=== PATIENT | female | born 1965 | race Two or more races ===

== ENCOUNTER 2025-09-02 14:21 | Outpatient (AMB) | payer MEDICAID, SELFPAY ==
[2025-09-02 14:59] VITALS: BP 128/83; PULSE 63; RESP 18; TEMP 36.4; O2SAT 98; BMI 28.5
--- NOTE | 2025-09-02 15:00 | PD.GSCLVISIT ---
Vital Signs - [facility] 09/02/25 14:59 09/02/25 15:06 Height 1.57 m Height Method Measured Weight 70.76 kg Weight Measurement Method Standing Scale BMI 28.5 BP 128/83 128/83 Blood Pressure Source Automatic Cuff Blood Pressure Location Left Upper Arm Position Sitting Respiration 18 18 Pulse 63 63 Pulse Source Monitor Temp 97.5 F 97.5 F Temp Source Temporal Artery Scan Pulse Oximetry (%) 98 98 Oxygen Delivery Method Room Air Med/Allergies Allergies & Medications Allergies No Known Allergies Allergy (Verified 09/02/25 15:05) Medication Reconciliation hydrocortisone acetate 25 mg rectal suppository (Anusol-HC) 25 mg NC QHS #24 ea 09/02/25 [Rx] MA Intake Visit Data Collection New Patient or Established: New Patient (never been to [facility]) Seen by Clinical Staff ONLY (RN/MA): No Reason for Visit:: REFERRAL RECTAL PROLAPSE Pain Present Currently: No Pain Scale Used: Sethi-Perez/Numerical Cardiovascular Or Nurse Required: Yes PCP or OBGYN visit in last 3 months: Yes Hx Now: No Do You Feel Safe at Home: Yes Authorities Contacted: N/A Smoking Status Smoking Status: Never smoker Immunization / Flu Flu Vaccine in the Last 12 Months: No Flu Vaccine Exclusion Criteria: Refused by Patient Past Medical History Past Medical History NEUROLOGIC: Negative Neurological Disorders or Seizures CARDIAC: Positive Cardiac Disorders and Varicose Veins (RICARDO INJECTION,FOR THIS SURG RIGHT); Negative Congestive Heart Failure RESPIRATORY: Negative Chronic Obstructive Pulmonary Disease (COPD) GASTROINTESTINAL: Positive Gastrointestinal Disorders and Colitis GENITOURINARY: Negative Genitourinary Disorders or Renal Disease REPRODUCTIVE: Positive Previous Pregnancies (X4) ENDOCRINE: Positive Endocrine Disorders; Negative Diabetes Mellitus Type 1 or Diabetes Mellitus Type 2 (GESTATIONAL DIABETES) HEMATOLOGIC: Negative Blood Disorders OTHER HISTORY: Positive Hospitalization ([facility] 2007) and Measles; Negative Autoimmune Disease, Shingles, Falls, Blood Transfusions, Anesthesia Reactions, Chemotherapy or Radiation Therapy Family History FAMILY HISTORY: Positive Family Cardiac Disorders (FATHER (HEART)), Family Gastrointestinal Problems (SISTER (ULCER)) and Family Surgery (MOTHER,FATHER); Negative Family Psychiatric Problems, Family Respiratory Disorders, Family Cancer or Family Anesthesia Reaction Surgical History SURGICAL: Positive Tubal Ligation and Section (X4) Social History SMOKING STATUS: Smoking status: Never smoker ALCOHOL: Alcohol Intake: Current HOUSING: Housing: House HPI HPI Narrative 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 Patient reports she has had hemorrhoids for several years, she had been planned for surgery but was unable to follow-up. She states that she has tissue that tends to prolapse and it is reducible, sometimes it is a lot of tissue and when she went to her PCP she reportedly did have some rectum prolapsing which is what prompted the referral. Patient denies any pain but she does have itching, occasional bleeding and does have to shower to keep the area clean. Patient also states that she has constipation at baseline, she admits to drinking minimal water and does not take fiber. She has not tried sitz baths and did have a colonoscopy sometime within the last few years which was normal PMH: Constipation PSH: C-sections, LEEP in 2018 Meds: Patient states she is not currently taking any but per the referral she was prescribed Linzess in November of this year Allergies: NKDA Family history: No known CRC ROS Review of Systems Systems Reviewed: All systems reviewed, normal except as documented Objective/Exam General General Appearance: alert, cooperative and well groomed Resp Respiratory exam: Absent respiratory distress Rectal Rectal exam: Present hemorrhoids (External hemorrhoids, normal PRECIOUS, internal hemorrhoids) Assessment & Plan Diagnosis / Problem List (1) Hemorrhoids: Status: Acute Assessment & Plan: 60F referred for hemorrhoids/rectal prolapse. On exam I did not observe any prolapse but I did note fairly large external as well as internal hemorrhoids. I explained that while surgery is an option, it is best to first address her constipation as if she continues to have constipation, surgery would be excruciating to bear and also would not be effective. I urged her to increase her water intake for goal of 2 L a day and then when she is able to do this she should initiate fiber in powder form. I provided an informative handout to details this as well as how to take sitz baths and will prescribe hydrocortisone suppositories. All questions were answered and pt is agreeable with this plan Plan: F/u in 6 weeks Office Procedures GNS Level of Care Nursing/Assessment Patient Status: Established Patient Nursing Assessment/Reassesment: Medication Reconciliation, Update PMH in EMR and Vital Signs Coordination of Care: Complex Care and Chronic Disease 1-5, Education Complex Pt/Fam, Consent,records obtained, informed consent, Results/Orders obtained and Staff clarify orders Special Needs: Language special needs Established Patient Charge Established Patient Point Assignment: 95 Established Patient Point Charge: EP Level 3 (80-115) Patient Portal Questionaires Social History Living Situation History Housing: House Tobacco History Smoking Status: Never smoker Alcohol History Alcohol Intake: Current Domestic Abuse History Do You Feel Safe at Home: Yes Review of Systems Report any current symptoms Only answer those that you have currently: Past Medical History Past Medical History Have you ever been diagnosed with any of the following: Neurological Problems Seizures: No Cardiology Problems Congestive Heart Failure: No Varicose Veins: Yes (RICARDO INJECTION,FOR THIS SURG RIGHT) Respiratory Problems Chronic Obstructive Pulmonary Disease (COPD): No Stomache/Intestinal Problems Colitis: Yes Genital/Urinary Problems Renal Disease: No Reproductive Problems Previous Pregnancies: Yes (X4) Endocrine Problems Diabetes Mellitus Type 1: No Diabetes Mellitus Type 2: No (GESTATIONAL DIABETES) Other Problems Hospitalization: Yes ([facility] 2007) Autoimmune Disease: No Shingles: No Falls: No Blood Transfusions: No Anesthesia Reactions: No Chemotherapy: No Radiation Therapy: No Measles: Yes
[2025-09-02 15:06] VITALS: BP 128/83; PULSE 63; RESP 18; TEMP 36.4; O2SAT 98
== END 2025-09-02 15:50 | disposition home or self-care (01) ==
PROVIDERS: PCP Physician Assistant; Referring Provider Physician Assistant; Supervising Provider Surgery; Visit Provider Surgery
DX: K64.4 Residual hemorrhoidal skin tags (principal); K64.8 Other hemorrhoids
CPT/HCPCS: 99213; G0463